=== PATIENT | male | born 1960 | race Caucasian/White ===

== ENCOUNTER → 2023-11-03 09:09 | Outpatient (REF) | payer OTHER, SELFPAY | LOC: DHCBS HW 09:09 | PROVIDERS: ATTENDING PHYSICIAN Internal Medicine Cardiovascular Disease; FAMILY PHYSICIAN Internal Medicine | DX: I50.22 Chronic systolic (congestive) heart failure (principal) | CPT/HCPCS: 93306 ==

== ENCOUNTER 2024-03-20 19:56 | Emergency (ER) | payer OTHER, SELFPAY ==
[2024-03-20 19:59] VITALS: BP 158/80
[2024-03-20 22:31] VITALS: BMI 33.3
[2024-03-20] MEDS: DELTASONE 50 MG PO (22:40)
[2024-03-20 22:49] VITALS: BP 127/72
--- NOTE | 2024-03-20 23:03 | ED.GENMED ---
History of Present Illness
General
Chief Complaint: Exposure-Chemical
Source: patient
Exam Limitations: none
Time Seen by Provider: 03/20/24 21:04
Nursing documentation reviewed up to this point in time: agreed with
History of Present Illness
History of Present Illness:
64-year-old male with history as documented presents to the emergency room for evaluation of cough, congestion and headache. Patient says that he was blowing ant spray ([employer]) onto the side of his house 3 days ago and a kayla
of wind blew the spray back into his face and he believes he inhaled some. He says that afterwards he was having some coughing and since then has had some coughing and tightness in the chest as well as a mild headache. He says he did initially
have some nausea but no vomiting. He says he has had some yellowish mucus and rhinorrhea as well. Denies any fevers or chills. Denies any shortness of breath. Denies any other complaints.
Past History
Past History
ED Past Medical History: CAD, HTN, Hypercholesterolemia, [place] and Other
ED Past Surgical History: Cardiac
Social History
Tobacco: Former smoker
Alcohol: None
Drug: None
Personal: Single
Living: with family
Family History
Family History: CAD
Review of Systems
Review of Systems
All Other Systems: ROS reviewed and negative except as documented in HPI and ROS
Constitutional: Denies fever or chills
Respiratory: Reports cough; Denies trouble breathing
Cardiac: Denies chest pain or palpitations
ABD/GI: Reports nausea; Denies abdominal pain or vomiting
: Denies flank pain
Musculoskeletal: Denies neck pain or back pain
Neurological: Reports headache
Phy Exam
Physical Exam
Physical Exam:
General: Awake, alert, oriented x3; no acute distress
Head: Normocephalic, atraumatic
Eyes: Conjunctiva normal, EOMI, pupils equal round and reactive to light bilaterally
Throat: Airway intact, handling secretions
Neck: Trachea midline, supple without meningismus
Lungs: Clear to auscultation bilaterally, no wheezing, rales, rhonchi; occasional cough
Heart: Regular rate and rhythm, no murmurs, gallops, or rubs appreciated
Abd: Soft, non distended, nontender
Neuro: Cranial nerves grossly intact, speech fluid, no gross motor or sensory deficits
Extremities: No edema in extremities, warm well-perfused
Scores
Heart Failure Risk
Heart Failure Risk Score: Not Applicable
Heart Score for Chest Pain Patients
STEMI patient?: Not applicable
Withdrawal Assessment of Alcohol
Withdrawal Assessment Completed?: Not applicable
Course
Orders/Labs/Results
Orders:
Orders
03/20/24 21:11
CR Chest - 2 Views Urgent
Comment:
Reason For Exam: cough, ?chemical aspiration
03/20/24 22:35
Prednisone [Deltasone] 50 mg PO NOW STA
Vital Signs
Initial and Last Documented VS:
Initial Vital Signs
Temp Pulse Resp BP Pulse Ox
36.9 C 74 24 158/80 98
03/20/24 19:59 03/20/24 19:59 03/20/24 19:59 03/20/24 19:59 03/20/24 19:59
Last Documented Vital Signs
Temp Pulse Resp BP Pulse Ox
36.9 C 64 18 127/72 98
03/20/24 22:49 03/20/24 22:49 03/20/24 22:49 03/20/24 22:49 03/20/24 22:49
MDM/Problems Addressed
Differential Diagnosis Includes:
Chemical pneumonitis, pneumonia, COPD exacerbation
MDM/Problems Addressed:
64-year-old male presents for evaluation of cough and chest tightness, headache since he accidentally inhaled some ant spray 3 days ago. Marginally hypertensive in triage normalized by my assessment, rest of vitals normal including a normal
respiratory rate and normal pulse ox. Physical exam as above�no appreciable wheezing. Occasional coughing. Will check chest x-ray to rule out pneumonia. Suspect likely mild COPD exacerbation. I did discuss the case with Poison Control
Center�supportive care only, unlikely to have significant toxicity associated with this.
Chest x-ray shows no acute disease. Will plan to treat with a short course of prednisone, albuterol as needed. Follow-up with PCP. Patient happy with this plan. All questions answered.
*Radiology
Radiology exam reviewed: preliminary read by ED provider and radiology read reviewed
*Pulse Oximetry
Patient hypoxic: no
*Critical Care Note
Total Time (30-74mins, 75-104mins- exclusive of procedures): Not Applicable
Data Reviewed
Source: patient
Patient Management
Discussion with other providers: Psychology Technician (Discussed with Poison Control Center)
ED Attending Note
-
Portions of this chart may have been created with voice recognition software.� Occasional wrong word or��sound alike� substitutions may have occurred due to the inherent limitations of voice recognition software.
Discharge Plan
Departure
Patient Disposition: Home (Routine Discharge)
Date of Disposition: 03/20/24
Time of Disposition: 22:34
Patient with high blood pressure during this ER visit?: Yes
Discharge Problem:
COPD exacerbation, Chemical exposure
Instructions: COPD Exacerbation, Adult ED
Prescriptions:
New
prednisone 50 mg tablet
50 mg PO DAILY Qty: 4 0RF
No Action
atorvastatin 80 MG tablet
80 mg PO DAILY
amiodarone [Pacerone] 200 MG tablet
200 mg PO BID 0RF
spironolactone 25 MG tablet
12.5 mg PO DAILY 0RF
carvedilol 3.125 MG tablet
3.125 mg PO BID 0RF
furosemide 80 MG tablet
80 mg PO DAILY 0RF
folic acid 1 MG tablet
1 mg PO DAILY 0RF
lisinopril 5 MG tablet
5 mg PO DAILY 0RF
potassium chloride 10 MEQ tablet,ER particles/crystals
10 meq PO DAILY Qty: 30 0RF
aspirin 81 mg Tablet,Delayed Release (Dr/Ec)
81 mg PO DAILY Qty: 90 0RF
Eliquis 5 MG tablet
5 mg PO BID Qty: 30 11RF
gabapentin 100 mg capsule
100 mg PO BID Qty: 14 0RF
Referrals:
Robin Sampson MD [Family Provider] - Call in 1-3 days for appt
Activity Restrictions/Additional Instructions:
Thank you for visiting the Emergency Department at [facility].
1. Please schedule a follow up appointment as directed. Call first thing tomorrow morning to make an appointment.
2. If indicated, please take your medications as instructed and indicated on discharge paperwork.
3. If any of your symptoms do not improve, or persist, or become more severe within 6-12 hours, please return to the emergency department for further care.
4. Please return to the emergency department if you develop a headache, neck pain/stiffness, fever greater than 100.4F, chest pain, shortness of breath, persistent nausea, vomiting, slurred speech, difficulty walking, numbness/tingling, weakness,
signs of infection or any other symptoms that are worrisome to you.
Please call [phone] if you have any questions.
Interventions
Interventions:
*Risk Screen - Suicide Last Done: 03/20/24 19:59
*General Assessment Last Done: 03/20/24 22:29
*Neglect/Abuse Screening Last Done: 03/20/24 19:59
ED- Fall Risk Assessment Last Done: 03/20/24 22:29
*ED COVID-19 Vaccine History Last Done: 03/20/24 22:29
*Nursing Disposition Last Done: 03/20/24 22:49
ED- Neurological Assessment Last Done: 03/20/24 21:32
ED- Pulmonary Assessment Last Done: 03/20/24 21:32
ED-Skin Assessment Last Done: 03/20/24 21:32
Discharge Date and Time
Discharge Date/Time: 03/20/24 22:50
Print Language: CITIZEN OF [place]
== END 2024-03-20 22:50 | disposition home or self-care (01) ==
LOC: EMR 19:56
PROVIDERS: EMERGENCY PHYSICIAN Emergency Medicine; FAMILY PHYSICIAN Internal Medicine
DX: J44.1 Chronic obstructive pulmonary disease with (acute) exacerbation (principal); Z77.098 Contact with and (suspected) exposure to other hazardous, chiefly nonmedicinal, chemicals; R05.9 Cough, unspecified; R07.89 Other chest pain; R51.9 Headache, unspecified; R11.0 Nausea; R10.9 Unspecified abdominal pain; R09.81 Nasal congestion; I25.10 Atherosclerotic heart disease of native coronary artery without angina pectoris; I10 Essential (primary) hypertension; E78.00 Pure hypercholesterolemia, unspecified; I25.2 Old myocardial infarction; Z87.891 Personal history of nicotine dependence; Z79.82 Long term (current) use of aspirin; Z79.01 Long term (current) use of anticoagulants
CPT/HCPCS: 99283; 71046

== ENCOUNTER 2024-03-25 19:12 | Emergency (ER) | payer OTHER, SELFPAY ==
[2024-03-25 19:29] VITALS: BP 188/81
[2024-03-25 19:57] LABS: % Basophils 0.2 % (0-2); % Eosinophils 0.4 % (0-6); % Immature Granulocytes 0.6 % (0-0.5); % Lymphocytes 18.2 % (20.5-51.1); % Monocytes 10.4 % (1.7-9.3); % Neutrophils 70.2 % (42.2-75.2); Absolute Immature Granulocytes 0.1 10^3/uL (0-0.05); Absolute Monocytes 1.1 10^3/uL (0.1-0.6); Absolute Neutrophils 7.7 10^3/uL (1.4-6.5); Hematocrit 40.1 % (39.0-52.0); Hemoglobin 14.6 g/dL (13.0-18.0); Mean Corp Hgb Conc. 36.4 g/dL (33.0-37.0); Mean Corpuscular Hgb 30.1 pg (27.0-31.0); Mean Corpuscular Volume 82.7 fL (80.0-94.0); Mean Platelet Volume 9.5 fL (7.4-10.4); Nucleated Red Blood Cells % 0 % (-); Platelet Count 254 10^3/uL (130-400); Red Blood Cell Count 4.85 10^6/uL (4.70-6.10); White Blood Cell Count 10.9 10^3/uL (4.8-10.8)
[2024-03-25 20:10] LABS: COVID-19 Antigen Positive (Negative)
[2024-03-25 20:12] LABS: ALT (SGPT) 20 U/L (0-50); AST (SGOT) 22 U/L (17-59); Albumin 4.3 g/dl (3.5-5.0); Alkaline Phosphatase 103 U/L (38-126); Blood Urea Nitrogen 25 mg/dl (9-20); Calcium 9.5 mg/dl (8.4-10.2); Carbon Dioxide 30 mmol/L (22-30); Chloride 98 mmol/L (98-107); Glucose 153 mg/dl (70-99); Potassium 2.8 mmol/L (3.5-5.1); Sodium 140 mmol/L (135-145); Total Bilirubin 0.6 mg/dl (0.2-1.3); eGFR > 60.00
[2024-03-25 21:22] VITALS: BP 124/71; BMI 32.6
--- NOTE | 2024-03-25 21:55 | EDRN ---
Called pharmacy for IV KCL
[2024-03-25 22:00] VITALS: BP 135/64
[2024-03-25] MEDS: KCL 40 MEQ PO (22:13)
[2024-03-25] MEDS: NSS with KCL 20 MEQ 1000 IV (22:19)
[2024-03-25 23:00] VITALS: BP 116/64
--- NOTE | 2024-03-25 23:01 | ED.GENMED ---
History of Present Illness
General
Chief Complaint: Breathing Problem
Time Seen by Provider: 03/25/24 20:42
History of Present Illness
History of Present Illness:
64-year-old male with history of hypertension, hyperlipidemia, CAD status post stenting, CHF, A-fib on Eliquis presenting to the emergency department for shortness of breath. Patient reports symptoms started about a week ago after he was spraying
ant spray. He inhaled spray and has some lung irritation. He came to the hospital, was prescribed steroids, and notes that he initially had some improvement. A few days ago, felt that the symptoms worsened, with cough and tightness in his
breathing. Denies fever. Denies known sick contacts. Reports difficulty expectorating mucus. Denies abdominal pain or GI symptoms. Denies additional acute medical complaints
Past History
Past History
ED Past Medical History: CAD, HTN, Hypercholesterolemia, [place] and Other
ED Past Surgical History: Cardiac
Social History
Tobacco: Former smoker
Alcohol: None
Drug: None
Personal: Single
Living: with family
Family History
Family History: CAD
Phy Exam
Physical Exam
Physical Exam:
General: Well-appearing, no clinical signs of dehydration, nontoxic and in no acute distress
HEENT: protecting airway
Neck: appears supple
CV: Normal heart rate, regular rhythm
Resp: No accessory muscle use, no increased work of breathing, lungs clear to auscultation bilaterally
Abd: Soft and non-distended, no tenderness to palpation
Extremities: No deformities, no swelling, no erythema
Neuro: alert, no focal neurologic deficit
: deferred
Rectal: deferred
Psych: Normal affect
Skin: Intact
Scores
Heart Failure Risk
Heart Failure Risk Score: Not Applicable
Course
Orders/Labs/Results
Orders:
Orders
03/25/24 19:33
EKG [Electrocardiogram (*1)] Urgent
Reason for Study: Shortness of Breath
EKG- Treatment ONCE
CR Chest - 2 Views Urgent
Comment:
Reason For Exam: cough, sob
03/25/24 19:39
COVID-19 Antigen Urgent
Source: Nasal Swab
03/25/24 19:42
CBC/With Diff [Complete Blood Count/With Diff] Urgent
CMP [Comprehensive Metabolic Panel] Urgent
03/25/24 21:29
Potassium Chloride [KCl] 40 meq PO NOW STA
03/25/24 23:00
KCl 20 Meq/0.9%Sodchl 1000 ml [NSS with KCL 20 MEQ] 20 meq in 1,000 ml IV 999 mls/hr
Abnormal Lab Results
03/25/24 03/25/24
19:39 19:42
WBC 10.9 H 10^3/uL
(4.8-10.8)
Abs Immat Gran (auto) 0.1 H 10^3/uL
(0-0.05)
Absolute Neuts (auto) 7.7 H 10^3/uL
(1.4-6.5)
Absolute Monos (auto) 1.1 H 10^3/uL
(0.1-0.6)
Immature Gran % 0.6 H %
(0-0.5)
Lymphocytes % 18.2 L %
(20.5-51.1)
Monocytes % 10.4 H %
(1.7-9.3)
Potassium 2.8 L mmol/L
(3.5-5.1)
BUN 25 H mg/dl
(9-20)
Glucose 153 H mg/dl
(70-99)
SARS-CoV-2 Antigen Positive A
(Negative)
03/25/24 19:42
03/25/24 19:42
Vital Signs
Initial and Last Documented VS:
Initial Vital Signs
Temp Pulse Resp BP Pulse Ox
97.5 F 82 18 188/81 98
03/25/24 19:29 03/25/24 19:29 03/25/24 19:29 03/25/24 19:29 03/25/24 19:29
Last Documented Vital Signs
Temp Pulse Resp BP Pulse Ox
98.1 F 66 16 135/64 96
03/25/24 21:22 03/25/24 22:00 03/25/24 22:00 03/25/24 22:00 03/25/24 22:00
MDM/Problems Addressed
MDM/Problems Addressed:
64-year-old male with history of CAD status post stenting, CHF, A-fib on Eliquis, hypertension and hyperlipidemia presenting for cough and difficulty breathing. Vital signs on arrival significant for hypertension, which improved without
intervention.
On exam, patient is well-appearing, no acute distress, no respiratory distress. Unremarkable cardiac and pulmonary exam. EKG obtained, nonischemic without change from prior. Patient notes tightness secondary to his breathing, denies active chest
pain. Without present concern for ACS. Patient had been seen about a week ago, suffered lung irritation after inhaling bug spray. Without concern for any toxic pneumonitis given well-appearance and absence of any focal abnormal lung sounds.
Patient had screening laboratory analysis and COVID swab prior to my assessment. Patient is COVID-positive which is consistent with the symptoms. No present hypoxia or increased work of breathing. Will obtain x-ray imaging. Labs obtained, mild
hypokalemia. Will replete.
23:10 - Chest x-ray shows small pleural effusion and possible infiltrate. Suspect viral pneumonia. Patient otherwise remains hemodynamically stable, and stable for respiratory standpoint. Feel stable for discharge. Advised continued supportive
therapy for COVID. Return precautions discussed and patient verbalized understanding
*EKG
Interpreted by ED Provider?: Yes
EKG Intrepretation Date: 03/25/24
EKG Intrepretation Time: 23:04
Interpretation: normal
Comparison EKG: no changes (03/07/24)
Heart Rate: 79
Rate: normal
Rhythm: sinus
[facility]: normal axis
QRS Pattern: normal QRS
Ischemia: non-specific ST changes
*Critical Care Note
Total Time (30-74mins, 75-104mins- exclusive of procedures): Not Applicable
ED Attending Note
-
Portions of this chart may have been created with voice recognition software.� Occasional wrong word or��sound alike� substitutions may have occurred due to the inherent limitations of voice recognition software.
Discharge Plan
Departure
Patient Disposition: Home (Routine Discharge)
Date of Disposition: 03/25/24
Time of Disposition: 23:10
Patient with high blood pressure during this ER visit?: Yes
Condition: Good
Discharge Problem:
COVID-19, Acute hypokalemia
Instructions: Hypokalemia, COVID-19 ED, High-potassium diet
Prescriptions:
New
potassium chloride 20 mEq tablet extended release
20 meq PO DAILY 3 Days Qty: 3 0RF
No Action
atorvastatin 80 MG tablet
80 mg PO DAILY
amiodarone [Pacerone] 200 MG tablet
200 mg PO BID 0RF
spironolactone 25 MG tablet
12.5 mg PO DAILY 0RF
carvedilol 3.125 MG tablet
3.125 mg PO BID 0RF
furosemide 80 MG tablet
80 mg PO DAILY 0RF
folic acid 1 MG tablet
1 mg PO DAILY 0RF
lisinopril 5 MG tablet
5 mg PO DAILY 0RF
potassium chloride 10 MEQ tablet,ER particles/crystals
10 meq PO DAILY Qty: 30 0RF
aspirin 81 mg Tablet,Delayed Release (Dr/Ec)
81 mg PO DAILY Qty: 90 0RF
Eliquis 5 MG tablet
5 mg PO BID Qty: 30 11RF
gabapentin 100 mg capsule
100 mg PO BID Qty: 14 0RF
prednisone 50 mg tablet
50 mg PO DAILY Qty: 4 0RF
Referrals:
Robin Sampson MD [Family Provider] -
Activity Restrictions/Additional Instructions:
You were seen in the emergency department for cough and shortness of breath
You were found to have COVID-19 and a low potassium
Please follow-up closely with your primary care physician.
Return to the emergency department for any worsening of your symptoms, or any development of chest pain, increased difficulty breathing, abdominal pain with persistent vomiting and inability to tolerate food or liquid by mouth (concern for
dehydration), weakness, headache or confusion, fever greater than 100.4, or any additional symptoms that are concerning to you.
Thank you for choosing [facility].
Interventions
Interventions:
*Risk Screen - Suicide Last Done: 03/25/24 21:22
*General Assessment Last Done: 03/25/24 21:22
*Neglect/Abuse Screening Last Done: 03/25/24 21:22
*ED COVID-19 Vaccine History Last Done: 03/25/24 21:22
ED- Pulmonary Assessment Last Done: 03/25/24 21:22
Discharge Date and Time
Print Language: [place]
== END 2024-03-25 23:40 | disposition home or self-care (01) ==
LOC: EMR 19:12
PROVIDERS: Emergency Medicine; EMERGENCY PHYSICIAN Student in an Organized Health Care Education/Training Program; FAMILY PHYSICIAN Internal Medicine
DX: U07.1 COVID-19 (principal); E87.6 Hypokalemia; J90 Pleural effusion, not elsewhere classified; I11.0 Hypertensive heart disease with heart failure; I50.9 Heart failure, unspecified; I25.10 Atherosclerotic heart disease of native coronary artery without angina pectoris; I48.91 Unspecified atrial fibrillation; E78.00 Pure hypercholesterolemia, unspecified; I25.2 Old myocardial infarction; Z95.5 Presence of coronary angioplasty implant and graft; Z79.01 Long term (current) use of anticoagulants; Z87.891 Personal history of nicotine dependence
CPT/HCPCS: 99284; 96365; 71046; 80053; 85025; 87811; 93005